=== PATIENT | male | born 1970 | race African-American/Black ===

== ENCOUNTER 2016-06-07 16:56 | Emergency (ER) | payer OTHER ==
[~2016-06-07] VITALS: Ht 180.3 cm; Wt 97.5 kg
[~2016-06-07 16:56] MED LIST: AMLODIPINE BESY10 MG ORAL; SOMA250 MG PO
[2016-06-07 16:59] VITALS: BP 167/121
[2016-06-07] MEDS ORDERED: Morphine Sulfate 4mg/ml Inj IM ONE ×2 (18:00→20:00)
[2016-06-07 18:58] LABS: BASOPHILS % (AUTO) 1.7 % (0.0-2.0); EOSINOPHILS % (AUTO) 0.8 % (0.0-3.0); LYMPHOCYTES % (AUTO) 46.1 % (20.0-45.0); MEAN CORPUSCULAR HEMOGLOBIN 33.2 PG (27.0-31.0); MEAN CORPUSCULAR HGB CONC 33.8 G/DL (32.0-36.0); MEAN CORPUSCULAR VOLUME 98 FL (80-99); MEAN PLATELET VOLUME 6.3 FL (6.5-10.1); MONOCYTES % (AUTO) 7.6 % (1.0-10.0); NEUTROPHILS % (AUTO) 43.9 % (45.0-75.0); PLATELET COUNT 358 K/UL (150-450); RED BLOOD COUNT 5.23 M/UL (4.70-6.10); RED CELL DISTRIBUTION WIDTH 11.4 % (11.6-14.8); WHITE BLOOD COUNT 7.1 K/UL (4.8-10.8)
[2016-06-07 19:14] LABS: ANION GAP 17 (5-15); CALCIUM 10.1 mg/dL (8.6-10.2); CARBON DIOXIDE 28 mEQ/L (20-30); CHLORIDE 99 mEQ/L (98-107); CREATININE 1.1 mg/dL (0.7-1.2); GLOMERULAR FILTRATION RATE > 60 mL/min (>60); HEMOLYSIS 4; POTASSIUM 4.1 mEQ/L (3.4-4.9); SODIUM 144 mEQ/L (135-145)
[2016-06-07 19:39] LABS: APPEARANCE,URINE CLEAR; KETONES,URINE NEGATIVE (NEGATIVE); LEUKOCYTE ESTERASE ,URINE NEGATIVE (NEGATIVE); NITRITE,URINE NEGATIVE (NEGATIVE); PH,URINE 7 (4.5-8.0); PROTEIN,URINE NEGATIVE (NEGATIVE); UROBILINOGEN,URINE 8 MG/DL (0.0-1.0)
[2016-06-07] MEDS ORDERED: COLACE100 MG ORAL (19:59)
[2016-06-07] MEDS ORDERED: RANITIDINE HCL150 MG ORAL (19:59)
[2016-06-07] MEDS ORDERED: ACETAMINOPHEN-1 EAC1 ORAL (20:05)
[2016-06-07 20:22] VITALS: BP 141/95
[2016-06-07 20:24] VITALS: BP 141/95
--- NOTE | 2016-06-09 02:58 | Emergency Room Report ---
History of Present Illness General Chief Complaint: Pain Source: Patient Present Illness HPI The patient was brought in by paramedics for complaint of what he described as prostate pain Patient reports having a procedure done 2 weeks ago And now having evidence of blood in the stool And increased pain in the rectal region Denies any chest pain or shortness of breath Denies any back or flank pain Patient also reported pus in his urine an abnormal smell Denies any fevers He also complains of diffuse abdominal discomfort Denies any flank pain Allergies: Coded Allergies: No Known Allergies (Unverified , 08/20/15) Patient History Past Medical History: see triage record Pertinent Family History: none Reviewed Nursing Documentation: PMH: Agreed, PSxH: Agreed Nursing Documentation-PMH Hx Hypertension: Yes Hx COPD: No - GERD Hx Cancer: Yes - Prostate Review of Systems All Other Systems: negative except mentioned in HPI Physical Exam Vital Signs Date Time Temp Pulse Resp B/P Pulse Ox O2 Delivery O2 Flow Rate FiO2 06/07/16 16:50 98.4 96 18 167/121 98 Room Air Sp02 EP Interpretation: reviewed, normal General Appearance: mild distress - Appears uncomfortable initially, however after moved into the [facility], patient is resting comfortably Head: normocephalic, atraumatic Eyes: bilateral eye EOMI, bilateral eye PERRL ENT: hearing grossly normal, normal pharynx, TMs + canals normal, uvula midline Neck: full range of motion, supple, no meningismus, no bony tend Respiratory: lungs clear, normal breath sounds, no rhonchi, no respiratory distress, no retraction, no accessory muscle use Cardiovascular #1: normal peripheral pulses, regular rate, rhythm, no edema, no gallop, no JVD, no murmur Gastrointestinal: normal bowel sounds, non tender, soft, no mass, no organomegaly, non-distended, no guarding, no hernia, no pulsatile mass, no rebound Rectal: other - No obvious abdominal palpation of the prostate, brown stool negative Hemoccult, Genitourinary: no CVA tenderness Musculoskeletal: normal inspection Neurologic: oriented x3, responsive, plumbing mechanic III-XII nml as tested, motor strength/ tone normal, sensory intact Psychiatric: other - Patient initially appeared somewhat histrionic, has had somewhat of a abnormal presentation with initial histeria, patient had fairly rapid resolution of this Skin: normal color, no rash, warm/dry, palpation normal Lymphatic: normal inspection, no adenopathy Medical Decision Making Diagnostic Impression: Primary Impression: abdominal pain ER Course With the history exam and presentation, multiple differentials considered, including but not limited to appendicitis, gastritis, cholecystitis, diverticulitis Given the patient's history of recent prostate procedure Was concerned about possible infection After initial blood work and urine sample Patient now states on repeat evaluation, that he never had a procedure performed He reports that he had mentioned that he was going to have a procedure performed This is different than his initial history There is again some question regarding the patient's presentation, elsie Family is also at bedside with multiple family members, showing significant concern After morphine IM injection, the family reports that now the patient appears to be a new person and appears significantly improved, patient also reports feeling significantly improved He reports that he is scared to have evaluation of his prostate, and was supposed to have it done. Patient is encouraged to followup closely as an outpatient, Labs Test 06/07/16 18:20 06/07/16 19:01 White Blood Count 7.1 K/UL (4.8-10.8) Red Blood Count 5.23 M/UL (4.70-6.10) Hemoglobin 17.4 G/DL (14.2-18.0) Hematocrit 51.4 % (42.0-52.0) Mean Corpuscular Volume 98 FL (80-99) Mean Corpuscular Hemoglobin 33.2 PG (27.0-31.0) Mean Corpuscular Hemoglobin Concent 33.8 G/DL (32.0-36.0) Red Cell Distribution Width 11.4 % (11.6-14.8) Platelet Count 358 K/UL (150-450) Mean Platelet Volume 6.3 FL (6.5-10.1) Neutrophils (%) (Auto) 43.9 % (45.0-75.0) Lymphocytes (%) (Auto) 46.1 % (20.0-45.0) Monocytes (%) (Auto) 7.6 % (1.0-10.0) Eosinophils (%) (Auto) 0.8 % (0.0-3.0) Basophils (%) (Auto) 1.7 % (0.0-2.0) Sodium Level 144 mEQ/L (135-145) Potassium Level 4.1 mEQ/L (3.4-4.9) Chloride Level 99 mEQ/L (98-107) Carbon Dioxide Level 28 mEQ/L (20-30) Anion Gap 17 (5-15) Blood Urea Nitrogen 7 mg/dL (7-23) Creatinine 1.1 mg/dL (0.7-1.2) Estimat Glomerular Filtration Rate > 60 mL/min (>60) Glucose Level 97 mg/dL (74-106) Calcium Level 10.1 mg/dL (8.6-10.2) Urine Color Yellow Urine Appearance Clear Urine pH 7 (4.5-8.0) Urine Specific Rudy 1.010 (1.005-1.035) Urine Protein Negative (NEGATIVE) Urine Glucose (UA) Negative (NEGATIVE) Urine Ketones Negative (NEGATIVE) Urine Occult Blood Negative (NEGATIVE) Urine Nitrite Negative (NEGATIVE) Urine Bilirubin Negative (NEGATIVE) Urine Urobilinogen 8 MG/DL (0.0-1.0) Urine Leukocyte Esterase Negative (NEGATIVE) Last Vital Signs Date Time Temp Pulse Resp B/P Pulse Ox O2 Delivery O2 Flow Rate FiO2 06/07/16 20:24 98.1 80 18 141/95 98 Room Air Status: improved Disposition: HOME, SELF-CARE Condition: Improved Scripts Acetaminophen With Codeine (T#3) (TYLENOL #3 TAB*) Y Tab 1 TAB ORAL Q8H Y for For Pain, #10 TAB Prov: POOJA MASTERS D.O. 06/07/16 Docusate Sodium* (COLACE*) 100 Mg Capsule 100 MG ORAL TWICE A DAY, #10 CAP Prov: POOJA MASTERS D.O. 06/07/16 Ranitidine Hcl* (ZANTAC*) 150 Mg Tablet 150 MG ORAL TWICE A DAY, #20 TAB Prov: POOJA MASTERS D.O. 06/07/16 Referrals: [facility],REFERRING (PCP) Patient Instructions: Abdominal Pain, Adult Additional Instructions: Patient is provided with the discharge instructions notified to follow up with primary doctor in the next 2-3 days otherwise return to the er with any worsening symptoms. Please note that this report is being documented using [employer] technology. This can lead to erroneous entry secondary to incorrect interpretation by the dictating instrument. POOJA MASTERS D.O. Jun 09, 2016 02:58
== END 2016-06-07 20:43 | disposition home or self-care (01) ==
LOC: EDBD 16:56 → EMR 18:05
DX: R10.9 Unspecified abdominal pain (principal); Z85.46 Personal history of malignant neoplasm of prostate; I10 Essential (primary) hypertension; Z87.19 Personal history of other diseases of the digestive system
CPT/HCPCS: 36415; 80048; 81003; 85025; 96372; 99284; J2270